=== PATIENT | female | born 1990 ===

== ENCOUNTER → 2023-05-24 12:17 | Outpatient (BNVA) | payer OTHER, SELFPAY | PROVIDERS: Visit Provider Nurse Practitioner Family | DX: M25.572 Pain in left ankle and joints of left foot (principal); S89.92XA Unspecified injury of left lower leg, initial encounter; W18.49XA Other slipping, tripping and stumbling without falling, initial encounter | CPT/HCPCS: 73610 ==

== ENCOUNTER → 2023-05-25 10:25 | Outpatient (BNVA) | payer OTHER, SELFPAY | PROVIDERS: Visit Provider Podiatrist Foot & Ankle Surgery | DX: S86.002A Unspecified injury of left Achilles tendon, initial encounter (principal); W18.49XA Other slipping, tripping and stumbling without falling, initial encounter | CPT/HCPCS: 99203 ==

== ENCOUNTER 2023-05-25 11:51 | Outpatient (CLI) | payer OTHER, SELFPAY | END 2023-05-25 11:52 | disposition home or self-care (01) | LOC: SPT 11:52 | PROVIDERS: Visit Provider Podiatrist Foot & Ankle Surgery | DX: Z46.89 Encounter for fitting and adjustment of other specified devices (principal); S86.002D Unspecified injury of left Achilles tendon, subsequent encounter; X58.XXXD Exposure to other specified factors, subsequent encounter | CPT/HCPCS: 97760; L3170 ==